=== PATIENT | male | born 1980 | race Caucasian/White ===

== ENCOUNTER 2020-01-20 11:21 | Emergency (ER) | payer OTHER, SELFPAY ==
--- NOTE | ~2020-01-20 | XR_ITS ---
XR foot RT min 3V DATE: 01/20/2020 11:45 INDICATION: Right foot pain after stepping on 23 days ago TECHNIQUE: 4 views COMPARISON: None FINDINGS: There is fracture/dislocation at the second through fifth tarsal metatarsal joints. There i s fracture of the base of the second metatarsal bone with lateral dislocation. There is intra-articul ar fracture of the cuboid bone. There is lateral dislocation at the third through fifth tarsometatars al joints. CT examination may be more informative as to possible additional fractures. IMPRESSION: Fracture/dislocation at second through fifth tarsometatarsal joints Reviewed, dictated and finalized at location B.
[2020-01-20 11:33] VITALS: BP 132/80; PULSE 99; RESP 16; TEMP 37.6; O2SAT 99
--- NOTE | 2020-01-20 12:14 | ED.LOWEXIN ---
HPI - Extremity Injury (Lower) General Chief Complaint: Extremity Injury, Lower Stated Complaint: Twisted ankle Time Seen by Provider: 01/20/20 11:55 Source: patient and RN notes reviewed Mode of arrival: ambulatory Limitations: no limitations History of Present Illness HPI Narrative: Patient presents today complaining of an injury to his right foot. He initially injured it by twisting it 1 week ago, and injured it again a few days ago by stepping on a dog toy. Pain is primarily to the dorsum of the foot and he currently rates his pain 2/10. He has been using crutches to ambulate, but will occasionally stand on the heel of his foot. Denies numbness or tingling in the leg or foot. He has been using ice, ibuprofen and naproxen with some relief. Injuries did not occur at work. Patient is a locomotive driver. MD complaint: foot injury Related Data Home Medications Medication Instructions Recorded Confirmed No Home Medications 01/20/20 01/20/20 Allergies Allergy/AdvReac Type Severity Reaction Status Date / Time No Known Allergies Allergy Verified 01/20/20 11:31 Review of Systems Review of Systems: Narrative: CONSTITUTIONAL: Denies body aches, fever, chills, or sweats. EYES: Denies visual changes, redness, or discharge. ENT: Denies rhinorrhea, congestion, sore throat, or otalgia. CARDIOVASCULAR: Denies chest pain, palpitations, or edema. RESPIRATORY: Denies cough or dyspnea. GASTROINTESTINAL: Denies abdominal pain, nausea, vomiting, or diarrhea. GENITOURINARY: Denies dysuria or hematuria. SKIN: Denies rash, itching, or wounds. MUSCULOSKELETAL: Denies back pain, or myalgia. + Right foot injury NEUROLOGIC: Denies headache, numbness, tingling, or weakness. PSYCH: Denies depression or anxiety. PMFSH Comments At time of signature, I have reviewed and agree with nursing past medical, surgical, social and family history unless otherwise noted. Please see nursing chart for further information. There is no relevant family history pertinent to the presenting complaint Exam Narrative: Exam Narrative: GENERAL: Well-appearing, well-nourished, and in no acute distress. HEAD: Normocephalic, atraumatic. EYES: EOMI. No redness or drainage. Conjunctivae normal. ENT: Mucous membranes pink and moist. NECK: Normal AROM. CHEST: No respiratory distress. EXTREMITIES: Right foot: Moderate ecchymosis to the dorsum of the foot extending almost to the toe tips. Mild edema to the foot. Mild bony tenderness to the midfoot. No tenderness to the ankle. No tenderness to the toes. Distal sensation intact. Capillary refill normal. Pedal pulse normal. Full range of motion of toes and ankle. SKIN: Warm, dry, no rash. Capillary refill normal. Normal skin turgor. NEURO: No focal deficits. Alert and oriented x3. Gait steady. PSYCH: Normal affect. No signs of depression or anxiety. Course Course Emergency Course: 1240-attempted to reach orthopedist on-call's office, Dr. Posey, to make a follow up appointment for my patient. Was informed by technical specialist cytogenetics that Dr. Posey doesn't take care of feet and was referred to Dr. Doss, podiatry for [facility]. 1250- I called [facility], associated with [facility] and spoke with Millicent. She said that her doctors would be happy to care for my patient. Appointment made for tomorrow and information faxed to office. They will contact patient today for further information. Vital Signs Vital signs: Vital Signs Temperature 99.7 F H 01/20/20 11:33 Pulse Rate 99 01/20/20 11:33 Respiratory Rate 16 01/20/20 11:33 Blood Pressure 132/80 01/20/20 11:33 Pulse Oximetry 99 01/20/20 11:33 Temperature 99.7 F H 01/20/20 11:33 Pulse Rate 99 01/20/20 11:33 Respiratory Rate 16 01/20/20 11:33 Blood Pressure 132/80 01/20/20 11:33 Pulse Oximetry 99 01/20/20 11:33 Reviewed. Pt has been instructed to follow up with his PCP regarding his
--- NOTE | 2020-01-20 12:35 | PC.NURSE ---
aware of awaiting call back from dr. goodman office.
--- NOTE | 2020-01-20 12:55 | PC.NURSE ---
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 for tomorrow, the office will call after insurance information verified, registration in process of faxing requested information from podiatry office.
== END 2020-01-20 13:20 | disposition home or self-care (01) ==
PROVIDERS: Emergency Provider Nurse Practitioner
DX: S92.321A Displaced fracture of second metatarsal bone, right foot, initial encounter for closed fracture (principal); S92.331A Displaced fracture of third metatarsal bone, right foot, initial encounter for closed fracture; S92.341A Displaced fracture of fourth metatarsal bone, right foot, initial encounter for closed fracture; S92.351A Displaced fracture of fifth metatarsal bone, right foot, initial encounter for closed fracture; X58.XXXA Exposure to other specified factors, initial encounter; S92.214A Nondisplaced fracture of cuboid bone of right foot, initial encounter for closed fracture
CPT/HCPCS: 29515; 73630; 99204; G0463